=== PATIENT | female | born 1965 | race Caucasian/White ===

== ENCOUNTER 2018-03-02 07:52 | Day surgery (SDC) | payer OTHER ==
[2018-02-25 18:16] VITALS: BMI 41.0
--- NOTE | 2018-03-02 07:31 | P.GSHP ---
History of Present Illness H&P Date: 03/02/18 CHIEF COMPLAINT: Colon screen HISTORY OF PRESENT ILLNESS: The patient is a 52-year-old female who presents for colon screen. Lower endoscopy was offered for further evaluation and management. PAST MEDICAL HISTORY: Please see list. PAST SURGICAL HISTORY: Please see list. MEDICATIONS: Please see list. ALLERGIES: Please see list. SOCIAL HISTORY: No illicit drug use FAMILY HISTORY: No reports of Crohn disease or ulcerative colitis. REVIEW OF ORGAN SYSTEMS: CONSTITUTIONAL: No reports of fevers or chills. PHYSICAL EXAM: VITAL SIGNS: Stable GENERAL: Well-developed pleasant in no acute distress. HEENT: No scleral icterus. Extraocular movements grossly intact. Moist buccal mucosa. NECK: Supple without lymphadenopathy. CHEST: Unlabored respirations. Equal bilateral excursions. CARDIOVASCULAR: Regular rate and rhythm. Distal 2+ pulses. ABDOMEN: Soft, nontender, nondistended. MUSCULOSKELETAL: No clubbing, cyanosis, or edema. ASSESSMENT: 1. Colon screen. PLAN: 1. Recommend proceeding with a lower endoscopy Past Medical History Past Medical History: Osteoarthritis (OA) Additional Past Medical History / Comment(s): MIGRAINES. CADENA'S PALSY 2007, PARALYSIS RT SIDE FACE. History of Any Multi-Drug Resistant Organisms: None Reported Past Surgical History: Tubal Ligation, Uterine Ablation Past Anesthesia/Blood Transfusion Reactions: No Reported Reaction Smoking Status: Never smoker - Past Family History Mother Family Medical History: Cancer Medications and Allergies Home Medications Medication Instructions Recorded Confirmed Type Ergocalciferol (Vitamin D2) 50,000 unit PO SA 02/25/18 02/25/18 History [Vitamin D2] Naproxen Sodium [Aleve] 220 mg PO BID PRN 02/25/18 02/25/18 History Rizatriptan Benzoate [Rizatriptan] 10 mg PO DAILY PRN 02/25/18 02/25/18 History Allergies Allergy/AdvReac Type Severity Reaction Status Date / Time No Known Allergies Allergy Verified 02/25/18 17:55
[~2018-03-02 07:52] MED LIST: LACTATED RINGERS 1,000 ML IV SCH; LIDOCAINE 1% 20 ML VIAL (10MG/ML) FOR IV START INTRADERMA PRN; MIDAZOLAM 2 MG/2 ML VIAL IV PRN
[2018-03-02 08:18] VITALS: TEMP 98.4
[2018-03-02] MEDS ORDERED: LIDOCAINE 1% INJ 10MG/ML (20 ML MDV) ONE (08:42)
[2018-03-02] MEDS ORDERED: PROPOFOL 10 MG/ML 20 ML VIAL IV ONE (08:42)
--- NOTE | 2018-03-02 09:07 | P.PCN ---
Date of Procedure: 03/02/18 Description of Procedure: PREOPERATIVE DIAGNOSIS: Colonoscopy screening. Higher risk history of multiple family members with colon cancer POSTOPERATIVE DIAGNOSIS: Colonoscopy screening. Higher risk history of multiple family members with colon cancer External hemorrhoids OPERATION: Colonoscopy to the ileocecal valve and appendiceal orifice. SURGEON: Eve Ramos MD. ANESTHESIA: MAC. INDICATIONS: The patient is a 52-year-old female who presents for colonoscopy screening. Benefits and risks were described and informed consent was obtained. DESCRIPTION OF PROCEDURE: The patient had undergone Gatorade, MiraLAX and Dulcolax prep. She had been brought into the operating room and laid in the left lateral decubitus position. After adequate intravenous sedation, the rectum was examined with 2% lidocaine jelly. External hemorrhoids were encountered. The rectal tone was within normal limits. No lesions were palpated in the rectal vault. An Olympus colonoscope was advanced until the ileocecal valve and appendiceal orifice were clearly viewed. The prep was good with clear visualization of the mucosal folds. The scope was removed slowly. No scattered diverticulosis was encountered. No colonic polyps were found. No evidence of focal colitis was found. Retroflexion of the scope demonstrated grade 1 internal hemorrhoids without active bleeding or inflammation. The colon was desufflated. The patient had tolerated the procedure well. Withdrawal time was over 6 minutes. FINDINGS: Internal hemorrhoids, grade 1 External prolapsed hemorrhoids. No arteriovenous malformations. No adenomatous polyps. No focal colitis. No sigmoid diverticulosis. RECOMMENDATIONS: Lower endoscopy in 3 years, 2020, for high risk history Plan - Discharge Summary New Discharge Prescriptions: No Action Naproxen Sodium [Aleve] 220 mg PO BID PRN PRN Reason: OA PAIN Rizatriptan Benzoate [Rizatriptan] 10 mg PO DAILY PRN PRN Reason: MIGRIANE Ergocalciferol (Vitamin D2) [Vitamin D2] 50,000 unit PO SA Discharge Medication List Ergocalciferol (Vitamin D2) [Vitamin D2] 50,000 unit PO SA 02/25/18 [History] Naproxen Sodium [Aleve] 220 mg PO BID PRN 02/25/18 [History] Rizatriptan Benzoate [Rizatriptan] 10 mg PO DAILY PRN 02/25/18 [History]
[2018-03-02 09:48] VITALS: BP 138/89; PULSE 54; RESP 18
== END 2018-03-02 10:00 | disposition home or self-care (01) ==
LOC: ORWHC2ENDO 07:52
PROVIDERS: ATTEND Surgery Plastic and Reconstructive Surgery
DX: Z12.11 Encounter for screening for malignant neoplasm of colon (principal); K64.8 Other hemorrhoids; K64.0 First degree hemorrhoids; Z80.0 Family history of malignant neoplasm of digestive organs; E66.9 Obesity, unspecified; Z68.41 Body mass index [BMI] 40.0-44.9, adult; M19.90 Unspecified osteoarthritis, unspecified site; G43.909 Migraine, unspecified, not intractable, without status migrainosus; G51.0 Bell's palsy; Z78.0 Asymptomatic menopausal state; Z98.51 Tubal ligation status
CPT/HCPCS: J2001; J2704; G0105

== ENCOUNTER → 2023-05-19 | Outpatient (CLI) | payer OTHER ==
--- NOTE | 2023-05-19 15:00 | US ---
EXAMINATION TYPE: US venous doppler duplex LE RT DATE OF EXAM: 05/19/2023 2:42 PM COMPARISON: NONE CLINICAL INDICATION: Female, 58 years old with history of R60.0 LOCALIZED EDEMA; localized edema x 1 month, history of plantar fascitis SIDE PERFORMED: Right TECHNIQUE: The lower extremity deep venous system is examined utilizing real time linear array sonog celina with graded compression, doppler sonography and color-flow sonography. VESSELS IMAGED: Common Femoral Vein Deep Femoral Vein Greater Saphenous Vein * Femoral Vein Popliteal Vein Small Saphenous Vein * Proximal Calf Veins (* superficial vessels) Right Leg: Negative for DVT,Grayscale, color doppler, spectral doppler imaging performed of the deep veins of the lower extremities. There is normal flow, compressibility, vascular waveforms. area of swelling may correspond to free fluid around tendon in medial lower calf IMPRESSION: 1. No evidence for deep vein thrombosis of the right lower extremity. 2. Area of swelling in the lower calf and is nonspecific without free fluid around the tendon sheath could represent tenosynovitis in the appropriate clinical setting. Consider MRI for further evaluati on.
== END | disposition home or self-care (01) ==
LOC: RADUSWWP 14:13
PROVIDERS: ATTEND Family Medicine
DX: R60.0 Localized edema (principal)